=== PATIENT | female | born 1955 | race African-American/Black ===

== ENCOUNTER 2019-04-26 13:43 | Emergency (ER) | payer MEDICARE, OTHER, SELFPAY ==
--- NOTE | 2019-04-26 13:45 | ED.WOUNDLAC ---
HPI - Wound/Laceration General Chief Complaint: Wound/Laceration Stated Complaint: ABSCESS ON ABDOMEN Time Seen by Provider: 04/26/19 14:00 Source: patient and RN notes reviewed Mode of arrival: ambulatory Limitations: no limitations History of Present Illness HPI narrative: 64-year-old female presents with concern for abscess on her navel where she has a keloid scar. Reports a history of abscesses in this area in the past, she reports the first time this happened she was hospitalized for bacteria in her blood. She reports a second time she was treated with antibiotics in a timely manner and was able to be treated at home. She reports she noticed bloody drainage with some pus yesterday. She reports since then a small amount of bloody drainage has continued from the area. Related Data Home Medications Medication Instructions Recorded Confirmed diltiazem HCl [Cardizem] 60 mg PO BID 04/26/19 04/26/19 losartan 25 mg PO DAILY 04/26/19 04/26/19 sitagliptin [Januvia] 100 mg PO DAILY 04/26/19 04/26/19 warfarin [Coumadin] 10 mg PO DAILY 04/26/19 04/26/19 Allergies Allergy/AdvReac Type Severity Reaction Status Date / Time Sulfa (Sulfonamide Allergy Mild Nausea and Verified 04/26/19 14:01 Antibiotics) Vomiting Review of Systems Review of Systems: Narrative: CONSTITUTIONAL: Denies malaise, chills, sweats, or fever. CARDIOVASCULAR: Denies chest pain, palpitations, or edema. RESPIRATORY: Denies cough or dyspnea. GASTROINTESTINAL: Denies abdominal pain, nausea, vomiting, diarrhea SKIN: Reports wound on her abdomen with bloody purulent drainage since yesterday MUSCULOSKELETAL: Denies myalgia. All systems reviewed & are unremarkable except as noted in HPI and below PMFSH Comments At time of signature, agree with nursing past medical, surgical, social and family history. There is no relevant family history pertinent to the presenting complaint Exam Narrative: Exam Narrative: GENERAL: Well-appearing, well-nourished, and in no acute distress. HEAD: Normocephalic EYES: PERRLA, conjunctivae clear ENT: Mucous membranes moist. NECK: Supple. No lymphadenopathy. CHEST: No respiratory distress. Speaks in full sentences. HEART: Regular rate and rhythm. No murmur heard. Normal peripheral pulses. ABDOMEN: Soft, nontender, nondistended, normal active bowel sounds, no palpable masses. SKIN: Warm, dry, no rash. Keloid scar noted to umbilicus, small nonfluctuant abscess in the center of the keloid scar with small amount of bloody purulent drainage noted. No surrounding erythema, edema, induration. NEURO: Alert and oriented x3. No focal deficits. Cranial nerves II through XII grossly intact PSYCH: Normal mood and affect Course Course Emergency Course: Patient is aware of diagnosis, understands and agrees to treatment plan. Anticipatory guidance given. Patient agrees to follow-up as directed and is aware of reasons to seek care at the emergency department. Portions of this record may have been created with voice recognition software Vital Signs Vital signs: Vital Signs Temperature 97 F L 04/26/19 13:49 Pulse Rate 78 04/26/19 13:49 Respiratory Rate 04/26/19 13:49 Blood Pressure 144/81 H 04/26/19 13:49 Pulse Oximetry 100 04/26/19 13:49 Temperature 97 F L 04/26/19 13:49 Pulse Rate 78 04/26/19 13:49 Respiratory Rate 04/26/19 13:49 Blood Pressure 144/81 H 04/26/19 13:49 Pulse Oximetry 100 04/26/19 13:49 Reviewed patient has current diagnosis of hypertension MDM - Wound/Laceration MDM Narrative Medical decision making narrative: Exam findings show no acute concerns or changes; patient is non-toxic appearing and is in no distress. Patient is appropriate for outpatient treatment and follow-up. Differential Diagnosis Differential diagnosis: Likely laceration, abscess, abrasion and avulsion of skin Critical Care Time Critical Care Time Critical Care Time: No Discharge Plan Discharge Clinical Impres
[2019-04-26 13:49] VITALS: BP 144/81; PULSE 78; RESP 20; TEMP 36.1; O2SAT 100
== END 2019-04-26 14:23 | disposition home or self-care (01) ==
PROVIDERS: Emergency Provider Nurse Practitioner
DX: L02.216 Cutaneous abscess of umbilicus (principal); Z86.718 Personal history of other venous thrombosis and embolism; I10 Essential (primary) hypertension; E11.9 Type 2 diabetes mellitus without complications
CPT/HCPCS: 99213; G0463